=== PATIENT | female | born 1965 | race Two or more races ===

== ENCOUNTER → 2019-02-28 | Outpatient (REF) | payer OTHER ==
[2019-02-28 10:57] LABS: ALBUMIN 4.3 GM/DL (3.2-5.2); ALT/SGPT 15 U/L (12-78); BILIRUBIN,TOTAL 0.4 MG/DL (0.2-1.0); BLOOD UREA NITROGEN 12 MG/DL (7-18); CALCIUM LEVEL 8.8 MG/DL (8.5-10.1); CARBON DIOXIDE LEVEL 27 MEQ/L (21-32); CHLORIDE LEVEL 110 MEQ/L (98-107); CHOLESTEROL LEVEL 133 MG/DL (<200); CHOLESTEROL RISK RATIO 2.714 (<5); CREATININE FOR GFR 0.64 MG/DL (0.55-1.30); GLOMERULAR FILTRATION RATE > 60.0 (>51); GLUCOSE, FASTING 81 MG/DL (70-100); HDL CHOLESTEROL 49 MG/DL (>40); LDL CHOLESTEROL 75 MG/DL (<100); NON-HDL-C 84 MG/DL; POTASSIUM SERUM 3.9 MEQ/L (3.5-5.1); SODIUM LEVEL 144 MEQ/L (136-145); TOTAL PROTEIN 7.8 GM/DL (6.4-8.2); TRIGLYCERIDES LEVEL 45 MG/DL (<150)
== END ==
LOC: M SFHCPLAZ 08:10
PROVIDERS: ATTEND Nurse Practitioner Family
DX: Z00.00 Encounter for general adult medical examination without abnormal findings (principal); Z13.220 Encounter for screening for lipoid disorders

== ENCOUNTER 2021-11-18 11:30 | Emergency (ER) | payer MEDICAID, OTHER ==
[~2021-11-18] VITALS: Ht 157.5 cm; Wt 71.4 kg
[2021-11-18] MEDS ORDERED: ASPI81TA26 PO (11:39)
[2021-11-18 13:11] LABS: HEMATOCRIT 40.5 % (36.0-47.0); HEMOGLOBIN 13.3 g/dl (12.0-15.5); MEAN CORPUSCULAR HEMOGLOBIN 30.1 pg (27.0-33.0); MEAN CORPUSCULAR HGB CONC 32.8 g/dl (32.0-36.5); MEAN CORPUSCULAR VOLUME 91.6 fl (80.0-96.0); PLATELET COUNT, AUTOMATED 236 10^3/uL (150-450); RED BLOOD COUNT 4.42 10^6/uL (4.00-5.40); WHITE BLOOD COUNT 7.1 10^3/uL (4.0-10.0)
[2021-11-18 13:50] LABS: BLOOD UREA NITROGEN 8 MG/DL (7-18); CALCIUM LEVEL 9.6 MG/DL (8.5-10.1); CARBON DIOXIDE LEVEL 29 MEQ/L (21-32); CHLORIDE LEVEL 108 MEQ/L (98-107); CREATININE FOR GFR 0.63 MG/DL (0.55-1.30); GLOMERULAR FILTRATION RATE > 60.0 (>51); GLUCOSE, FASTING 105 MG/DL (70-100); SODIUM LEVEL 141 MEQ/L (136-145)
[2021-11-18 15:35] VITALS: BP 144/71
--- NOTE | 2021-11-18 16:17 | ECGEPIP ---
[facility] - ED Test Date: 2021-11-18 Pat Name: GRETCHEN CLARK Department: Room: - Gender: Female Sales Support Administrator: Rolanda VEGA : 1965 Requested By: Ap Emmanuel Order Number: [id number] Reading MD: Tc Morris Measurements Intervals [place] Rate: 87 P: 55 ID: [id number] QRS: 69 QRSD: 90 T: 46 QT: 376 QTc: 452 Interpretive Statements Normal sinus rhythm Nonspecific ST and T wave abnormality Comparison tracing not on file Electronically Signed on 11-18-2021 16:16:47 EST by Tc Morris
== END 2021-11-18 15:41 | disposition home or self-care (01) ==
LOC: M ED 11:30
DX: R07.89 Other chest pain (principal)

== ENCOUNTER → 2021-12-21 | Outpatient (CLI) | payer MEDICAID ==
[~2021-12-21] MED LIST: ASPI81TA26 PO
[2021-12-21 13:50] LABS: BASO % 0.6 % (0.0-1.0); EOS # 0.3 10^3/uL (0.0-0.5); EOS % 3.9 % (0.0-3.0); HEMATOCRIT 39.6 % (36.0-47.0); LYMPH # 1.7 10^3/uL (1.5-5.0); LYMPH % 26.5 % (24.0-44.0); MEAN CORPUSCULAR HEMOGLOBIN 30.3 pg (27.0-33.0); MEAN CORPUSCULAR HGB CONC 32.8 g/dl (32.0-36.5); MEAN CORPUSCULAR VOLUME 92.3 fl (80.0-96.0); MONO # 0.7 10^3/uL (0.0-0.8); MONO % 10.4 % (2.0-8.0); NEUTROPHILS # 3.7 10^3/uL (1.5-8.5); NEUTROPHILS % 58.4 % (36.0-66.0); PLATELET COUNT, AUTOMATED 232 10^3/uL (150-450); RED BLOOD COUNT 4.29 10^6/uL (4.00-5.40); WHITE BLOOD COUNT 6.3 10^3/uL (4.0-10.0)
[2021-12-21 14:42] LABS: ALT/SGPT 25 U/L (12-78); BILIRUBIN,TOTAL 0.4 MG/DL (0.2-1.0); BLOOD UREA NITROGEN 11 MG/DL (7-18); CALCIUM LEVEL 9.7 MG/DL (8.5-10.1); CARBON DIOXIDE LEVEL 29 MEQ/L (21-32); CHLORIDE LEVEL 108 MEQ/L (98-107); CHOLESTEROL LEVEL 138 MG/DL (<200); CHOLESTEROL RISK RATIO 2.816 (<5); CREATININE FOR GFR 0.62 MG/DL (0.55-1.30); GLOMERULAR FILTRATION RATE > 60.0 (>51); GLUCOSE, FASTING 96 MG/DL (70-100); HDL CHOLESTEROL 49 MG/DL (>40); NON-HDL-C 89 MG/DL; POTASSIUM SERUM 3.9 MEQ/L (3.5-5.1); SODIUM LEVEL 143 MEQ/L (136-145); TRIGLYCERIDES LEVEL 43 MG/DL (<150)
[2021-12-21 14:43] LABS: ALBUMIN 4.6 GM/DL (3.2-5.2); FREE T4 0.96 NG/DL (0.76-1.46); LDL CHOLESTEROL 80 MG/DL (<100); TOTAL 25(OH) VITAMIN D 26.6 NG/ML (30.0-100.0); TOTAL PROTEIN 7.9 GM/DL (6.4-8.2)
[2021-12-21 14:53] LABS: HEMOGLOBIN A1c 5.2 %
== END ==
LOC: M PLALAB 10:24
PROVIDERS: ATTEND Physician Assistant
DX: Z13.1 Encounter for screening for diabetes mellitus (principal); F41.1 Generalized anxiety disorder; Z13.220 Encounter for screening for lipoid disorders

== ENCOUNTER → 2022-04-29 | Outpatient (CLI) | payer MEDICAID ==
[2022-04-29 15:56] LABS: FREE T4 0.81 NG/DL (0.76-1.46); THYROID STIMULATING HORMONE 5.77 uIU/ML (0.358-3.740); TOTAL 25(OH) VITAMIN D 23.9 NG/ML (30.0-100.0)
== END ==
LOC: M PLALAB 12:57
PROVIDERS: ATTEND Physician Assistant
DX: E55.9 Vitamin D deficiency, unspecified (principal); R79.89 Other specified abnormal findings of blood chemistry

== ENCOUNTER → 2022-07-22 | Outpatient (CLI) | payer OTHER | LOC: M RAD 11:29 | PROVIDERS: ATTEND Physician Assistant | DX: R10.31 Right lower quadrant pain (principal) ==

== ENCOUNTER → 2022-08-13 | Outpatient (REF) | payer OTHER ==
[2022-08-13 14:58] LABS: FREE T4 0.97 NG/DL (0.76-1.46); THYROID STIMULATING HORMONE 3.89 uIU/ML (0.358-3.740)
== END ==
LOC: M SFHCADAM 10:47
PROVIDERS: ATTEND Physician Assistant
DX: E03.8 Other specified hypothyroidism (principal)

== ENCOUNTER 2022-09-07 17:37 | Emergency (ER) | payer OTHER ==
[~2022-09-07] VITALS: Ht 162.6 cm; Wt 67.2 kg
[2022-09-07] MEDS ORDERED: KETOROLAC 30 MG/ML 1ML VIAL IV ONE (20:40)
[2022-09-07] MEDS ORDERED: METOCLOPRAMIDE INJ 10MG/2ML VIAL (J2765 PER 1) IV ONE (20:40)
[2022-09-07] MEDS ORDERED: NS 1,000 ML IV ONE (20:40)
[2022-09-07] MEDS ORDERED: diphenhydrAMINE 50MG/ML VIAL (J1200) IV ONE (20:40)
[2022-09-07 21:55] LABS: BLOOD UREA NITROGEN 11 MG/DL (7-18); CALCIUM LEVEL 9.3 MG/DL (8.5-10.1); CARBON DIOXIDE LEVEL 21 MEQ/L (21-32); CHLORIDE LEVEL 110 MEQ/L (98-107); CREATININE FOR GFR 0.66 MG/DL (0.55-1.30); GLOMERULAR FILTRATION RATE > 60.0 (>51); GLUCOSE, FASTING 84 MG/DL (70-100); POTASSIUM SERUM 3.8 MEQ/L (3.5-5.1); SODIUM LEVEL 138 MEQ/L (136-145)
[2022-09-07 22:07] LABS: BASO # 0.1 10^3/uL (0.0-0.2); BASO % 0.7 % (0.0-1.0); EOS # 0.2 10^3/uL (0.0-0.5); EOS % 2.8 % (0.0-3.0); HEMATOCRIT 37.1 % (36.0-47.0); HEMOGLOBIN 12.2 g/dl (12.0-15.5); LYMPH # 2.2 10^3/uL (1.5-5.0); LYMPH % 31.9 % (24.0-44.0); MEAN CORPUSCULAR HEMOGLOBIN 29.8 pg (27.0-33.0); MEAN CORPUSCULAR HGB CONC 32.9 g/dl (32.0-36.5); MEAN CORPUSCULAR VOLUME 90.5 fl (80.0-96.0); MONO # 0.6 10^3/uL (0.0-0.8); MONO % 8.9 % (2.0-8.0); NEUTROPHILS # 3.8 10^3/uL (1.5-8.5); NEUTROPHILS % 55.6 % (36.0-66.0); PLATELET COUNT, AUTOMATED 208 10^3/uL (150-450); WHITE BLOOD COUNT 6.8 10^3/uL (4.0-10.0)
[2022-09-07 22:43] VITALS: BP 158/86
[2022-09-07 22:55] LABS: ERYTHROCYTE SEDIMENTATION RATE 8 mm/hr (0-30)
== END 2022-09-07 22:54 | disposition home or self-care (01) ==
LOC: M ED 17:37
DX: G43.909 Migraine, unspecified, not intractable, without status migrainosus (principal); Z78.0 Asymptomatic menopausal state
CPT/HCPCS: 80048; 85025; 85652; 86140; 96361; 96374; 99284; J1200; J1885; J2765

== ENCOUNTER → 2022-09-13 | Outpatient (CLI) | payer OTHER ==
[~2022-09-13] MED LIST changes: +ISOVUE-370 76% 100ML VIAL As Ordered ONE
== END ==
LOC: M RAD 10:02
PROVIDERS: ATTEND Physician Assistant
DX: R51.9 Headache, unspecified (principal)

== ENCOUNTER → 2022-10-12 | Outpatient (CLI) | payer OTHER ==
[~2022-10-12] MED LIST changes: -ISOVUE-370 76% 100ML VIAL As Ordered ONE; +PROHANCE 279.3MG/ML 15ML VIAL ONE
== END ==
LOC: M PLAIMG 13:54
PROVIDERS: ATTEND Physician Assistant
DX: R51.9 Headache, unspecified (principal)

== ENCOUNTER → 2023-02-11 | Outpatient (REF) | payer OTHER ==
[~2023-02-11] MED LIST changes: -PROHANCE 279.3MG/ML 15ML VIAL ONE
[2023-02-11 13:46] LABS: BASO # 0.1 10^3/uL (0.0-0.2); BASO % 0.7 % (0.0-1.0); EOS # 0.3 10^3/uL (0.0-0.5); EOS % 3.7 % (0.0-3.0); HEMATOCRIT 40.1 % (36.0-47.0); HEMOGLOBIN 13.2 g/dl (12.0-15.5); LYMPH # 2.1 10^3/uL (1.5-5.0); LYMPH % 30.3 % (24.0-44.0); MEAN CORPUSCULAR HEMOGLOBIN 30.8 pg (27.0-33.0); MEAN CORPUSCULAR HGB CONC 32.9 g/dl (32.0-36.5); MEAN CORPUSCULAR VOLUME 93.7 fl (80.0-96.0); MONO # 0.7 10^3/uL (0.0-0.8); MONO % 10.2 % (2.0-8.0); NEUTROPHILS # 3.9 10^3/uL (1.5-8.5); NEUTROPHILS % 54.8 % (36.0-66.0); PLATELET COUNT, AUTOMATED 226 10^3/uL (150-450); RED BLOOD COUNT 4.28 10^6/uL (4.00-5.40); WHITE BLOOD COUNT 7.1 10^3/uL (4.0-10.0)
[2023-02-11 16:24] LABS: ALBUMIN 4.2 G/DL (3.2-5.2); ALKALINE PHOSPHATASE 67 U/L (46-116); ALT/SGPT 23 U/L (7.0-40); AST/SGOT 18 U/L (<34); BILIRUBIN,TOTAL 0.5 MG/DL (0.3-1.2); BLOOD UREA NITROGEN 12 MG/DL (9-23); CARBON DIOXIDE LEVEL 30 MMOL/L (20-31); CHLORIDE LEVEL 106 MMOL/L (98-107); CHOLESTEROL LEVEL 151 MG/DL (<200); CHOLESTEROL RISK RATIO 3.17 (<5); CREATININE FOR GFR 0.57 MG/DL (0.55-1.30); FREE T4 0.84 NG/DL (0.89-1.76); GLOMERULAR FILTRATION RATE > 60.0 (>51); GLUCOSE, FASTING 102 MG/DL (60-100); HDL CHOLESTEROL 47.5 MG/DL (>40); NON-HDL-C 103.5 MG/DL; POTASSIUM SERUM 3.9 MMOL/L (3.5-5.1); SODIUM LEVEL 143 MMOL/L (136-145); THYROID STIMULATING HORMONE 8.346 uIU/ML (0.55-4.78); TOTAL 25(OH) VITAMIN D 32.6 NG/ML (20.0-100.0)
[2023-02-11 18:37] LABS: LDL CHOLESTEROL 91.3 MG/DL (<100); TOTAL PROTEIN 7.4 G/DL (5.7-8.2); TRIGLYCERIDES LEVEL 61 MG/DL (<150)
[2023-02-11 19:05] LABS: HEMOGLOBIN A1c 4.9 % (4.0-6.0)
== END ==
LOC: M SFHCADAM 09:56
PROVIDERS: ATTEND Physician Assistant
DX: F32.1 Major depressive disorder, single episode, moderate (principal); F41.1 Generalized anxiety disorder; E55.9 Vitamin D deficiency, unspecified; E03.8 Other specified hypothyroidism; Z68.27 Body mass index [BMI] 27.0-27.9, adult

== ENCOUNTER → 2023-03-03 | Outpatient (CLI) | payer OTHER ==
[~2023-03-03] MED LIST changes: +GASTROGRAFIN SOLUTION 30ML As Ordered ONE; +ISOVUE-370 76% 100ML VIAL As Ordered ONE
== END ==
LOC: M RAD 11:14
PROVIDERS: ATTEND Physician Assistant
DX: R10.31 Right lower quadrant pain (principal); K76.0 Fatty (change of) liver, not elsewhere classified; K80.20 Calculus of gallbladder without cholecystitis without obstruction; R93.89 Abnormal findings on diagnostic imaging of other specified body structures
CPT/HCPCS: 74177; Q9963; Q9967

== ENCOUNTER → 2023-06-24 | Outpatient (REF) | payer OTHER ==
[~2023-06-24] MED LIST changes: -GASTROGRAFIN SOLUTION 30ML As Ordered ONE; -ISOVUE-370 76% 100ML VIAL As Ordered ONE
[2023-06-24 13:51] LABS: FREE T4 1.08 NG/DL (0.89-1.76); THYROID STIMULATING HORMONE 5.065 uIU/ML (0.55-4.78)
== END ==
LOC: M SFHCADAM 10:53
PROVIDERS: ATTEND Physician Assistant
DX: E03.9 Hypothyroidism, unspecified (principal)

== ENCOUNTER → 2023-07-05 | Outpatient (CLI) | payer OTHER | LOC: M WHC 13:19 | PROVIDERS: ATTEND Physician Assistant | DX: Z12.31 Encounter for screening mammogram for malignant neoplasm of breast (principal); R10.31 Right lower quadrant pain; R14.0 Abdominal distension (gaseous) ==

== ENCOUNTER → 2023-12-05 | Outpatient (CLI) | payer OTHER ==
[2023-12-05 16:05] LABS: THYROID STIMULATING HORMONE 2.894 uIU/ML (0.55-4.78)
[2023-12-05 16:06] LABS: FREE T4 1.02 NG/DL (0.89-1.76); TOTAL 25(OH) VITAMIN D 33.6 NG/ML (20.0-100.0)
== END ==
LOC: M PLALAB 12:15
PROVIDERS: ATTEND Physician Assistant
DX: E03.9 Hypothyroidism, unspecified (principal); K59.09 Other constipation; F41.1 Generalized anxiety disorder; E55.9 Vitamin D deficiency, unspecified

== ENCOUNTER 2024-03-07 06:41 | Day surgery (SDC) | payer OTHER ==
[~2024-03-07] VITALS: Ht 162.6 cm; Wt 74.1 kg
[~2024-03-07 06:41] MED LIST changes: +LEVO25TA5 PO
[2024-03-07] MEDS: CEFUROXIME 1MG/0.1ML INTRACAMERAL INJ As Ordered ONE (06:48)
[2024-03-07] MEDS: LIDOCAINE 3.5 % 1ML OPHTH TOPICAL GEL OU ONE (07:18)
[2024-03-07] MEDS ORDERED: fentaNYL 100 MCG/2 ML INJECTION As Ordered ONE (07:31)
[2024-03-07] MEDS ORDERED: MIDAZOLAM INJ 2MG/2ML VIAL As Ordered ONE (07:31)
[2024-03-07] MEDS: mitoMYcin 0.2 MG/VIAL KIT FOR OPHTHALMIC USE As Ordered ONE (09:55)
[2024-03-07] MEDS: LIDOCAINE 1% SDV 5ML VIAL As Ordered ONE (09:56)
[2024-03-07] MEDS: TOBRADEX OPHTH OINT 3.5 GM As Ordered ONE (09:57)
[2024-03-07 10:08] VITALS: BP 123/71; TEMP 97.4; O2SAT 98
== END 2024-03-07 10:26 | disposition home or self-care (01) ==
LOC: M SDC 06:41
PROVIDERS: ATTEND Ophthalmology
DX: H40.812 Glaucoma with increased episcleral venous pressure, left eye (principal); E03.9 Hypothyroidism, unspecified; Z79.899 Other long term (current) drug therapy
CPT/HCPCS: 66183; C1783; J2250; J3010; J7315

== ENCOUNTER → 2024-03-27 | Outpatient (REF) | payer OTHER | LOC: M SFHCWAGY 14:56 | PROVIDERS: ATTEND Nurse Practitioner Family | DX: Z12.4 Encounter for screening for malignant neoplasm of cervix (principal) ==

== ENCOUNTER → 2024-09-18 | Outpatient (REF) | payer OTHER ==
[2024-09-18 19:20] LABS: HEMOGLOBIN A1c 5.3 % (4.0-6.0)
[2024-09-18 19:27] LABS: BASO % 0.5 % (0.0-1.0); EOS # 0.2 10^3/uL (0.0-0.5); EOS % 2.3 % (0.0-3.0); HEMATOCRIT 43.5 % (36.0-47.0); HEMOGLOBIN 13.8 g/dl (12.0-15.5); LYMPH # 1.8 10^3/uL (1.5-5.0); LYMPH % 28.1 % (24.0-44.0); MEAN CORPUSCULAR HEMOGLOBIN 30.1 pg (27.0-33.0); MEAN CORPUSCULAR HGB CONC 31.7 g/dl (32.0-36.5); MONO # 0.7 10^3/uL (0.0-0.8); MONO % 10.3 % (2.0-8.0); NEUTROPHILS # 3.8 10^3/uL (1.5-8.5); NEUTROPHILS % 58.6 % (36.0-66.0); PLATELET COUNT, AUTOMATED 283 10^3/uL (150-450); RED BLOOD COUNT 4.58 10^6/uL (4.00-5.40); WHITE BLOOD COUNT 6.4 10^3/uL (4.0-10.0)
[2024-09-18 19:44] LABS: CHOLESTEROL RISK RATIO 3.86 (<5); HDL CHOLESTEROL 42.7 MG/DL (>40); LDL CHOLESTEROL 104.7 MG/DL (<100); NON-HDL-C 122.3 MG/DL
[2024-09-18 19:50] LABS: THYROID STIMULATING HORMONE 4.78 uIU/ML (0.55-4.78)
[2024-09-18 19:51] LABS: TOTAL 25(OH) VITAMIN D 31.7 NG/ML (20.0-100.0)
== END ==
LOC: M LAB REF 17:16
PROVIDERS: ATTEND Pediatrics
DX: E66.3 Overweight (principal); Z68.27 Body mass index [BMI] 27.0-27.9, adult; E55.9 Vitamin D deficiency, unspecified

== ENCOUNTER → 2024-10-02 | Outpatient (CLI) | payer OTHER | LOC: M WHC 14:16 | PROVIDERS: ATTEND Pediatrics | DX: Z12.31 Encounter for screening mammogram for malignant neoplasm of breast (principal); Z13.820 Encounter for screening for osteoporosis; Z78.0 Asymptomatic menopausal state; M85.89 Other specified disorders of bone density and structure, multiple sites; R92.313 Mammographic fatty tissue density, bilateral breasts ==

== ENCOUNTER → 2024-11-02 | Outpatient (REF) | payer OTHER ==
[2024-11-02 17:45] LABS: LIPASE 48 U/L (12-53)
[2024-11-02 17:47] LABS: ALBUMIN 4.2 G/DL (3.2-5.2); ALKALINE PHOSPHATASE 79 U/L (35-104); ALT/SGPT 47 U/L (7.0-40); AST/SGOT 13 U/L (<34); BASO # 0.1 10^3/uL (0.0-0.2); BASO % 0.8 % (0.0-1.0); BILIRUBIN,TOTAL 0.6 MG/DL (0.3-1.2); BLOOD UREA NITROGEN 9 MG/DL (9-23); CALCIUM LEVEL 10.4 MG/DL (8.5-10.1); CARBON DIOXIDE LEVEL 30 MMOL/L (20-31); CHLORIDE LEVEL 105 MMOL/L (98-107); CREATININE FOR GFR 0.58 MG/DL (0.55-1.30); EOS # 0.2 10^3/uL (0.0-0.5); EOS % 2.7 % (0.0-3.0); GLOMERULAR FILTRATION RATE > 60.0 (>51); GLUCOSE, FASTING 99 MG/DL (60-100); HEMATOCRIT 43.5 % (36.0-47.0); HEMOGLOBIN 14.2 g/dl (12.0-15.5); LYMPH # 2.3 10^3/uL (1.5-5.0); LYMPH % 35.9 % (24.0-44.0); MEAN CORPUSCULAR HEMOGLOBIN 30.7 pg (27.0-33.0); MEAN CORPUSCULAR HGB CONC 32.6 g/dl (32.0-36.5); MONO # 0.7 10^3/uL (0.0-0.8); MONO % 10.5 % (2.0-8.0); NEUTROPHILS # 3.2 10^3/uL (1.5-8.5); NEUTROPHILS % 49.9 % (36.0-66.0); PLATELET COUNT, AUTOMATED 277 10^3/uL (150-450); POTASSIUM SERUM 4.8 MMOL/L (3.5-5.1); RED BLOOD COUNT 4.63 10^6/uL (4.00-5.40); SODIUM LEVEL 142 MMOL/L (136-145); WHITE BLOOD COUNT 6.4 10^3/uL (4.0-10.0)
== END ==
LOC: M LAB REF 12:14
PROVIDERS: ATTEND Pediatrics
DX: R10.9 Unspecified abdominal pain (principal)

== ENCOUNTER → 2024-11-02 | Outpatient (CLI) | payer OTHER | LOC: M RAD 10:38 | PROVIDERS: ATTEND Pediatrics | DX: R10.9 Unspecified abdominal pain (principal) ==

== ENCOUNTER 2024-12-12 06:19 | Day surgery (SDC) | payer OTHER ==
[~2024-12-12] VITALS: Ht 160 cm; Wt 76.2 kg
[~2024-12-12 06:19] MED LIST changes: +D-50CAP PO
[2024-12-12] MEDS ORDERED: fentaNYL 100 MCG/2 ML INJECTION As Ordered ONE (07:00)
[2024-12-12] MEDS ORDERED: MIDAZOLAM INJ 2MG/2ML VIAL As Ordered ONE (07:00)
[2024-12-12] MEDS: LIDOCAINE 3.5 % 1ML OPHTH TOPICAL GEL OU ONE (07:19)
[2024-12-12] MEDS: LIDOCAINE 1% SDV 5ML VIAL As Ordered ONE (09:38)
[2024-12-12] MEDS: TOBRADEX OPHTH OINT 3.5 GM As Ordered ONE (09:46)
[2024-12-12] MEDS: mitoMYcin 0.2 MG/VIAL KIT FOR OPHTHALMIC USE As Ordered ONE (09:49)
[2024-12-12 09:55] VITALS: BP 167/84; TEMP 97.4; O2SAT 96
== END 2024-12-12 10:48 | disposition home or self-care (01) ==
LOC: M SDC 06:19
PROVIDERS: ATTEND Ophthalmology
DX: H40.1111 Primary open-angle glaucoma, right eye, mild stage (principal); E03.9 Hypothyroidism, unspecified; E66.3 Overweight; Z79.890 Hormone replacement therapy; Z68.29 Body mass index [BMI] 29.0-29.9, adult
CPT/HCPCS: 66183; 93005; C1783; J2250; J3010; J7315

== ENCOUNTER → 2025-01-25 | Outpatient (CLI) | payer OTHER ==
[~2025-01-25] MED LIST changes: +CITA20TA7 PO; +MAGN400T35 PO; +TRAV2.5D OU
== END ==
LOC: M RAD 09:58
PROVIDERS: ATTEND Pediatrics
DX: R10.9 Unspecified abdominal pain (principal); K76.0 Fatty (change of) liver, not elsewhere classified; K80.20 Calculus of gallbladder without cholecystitis without obstruction

== ENCOUNTER → 2025-01-29 | Day surgery (SDC) | payer OTHER ==
[~2025-01-29] VITALS: Ht 162.6 cm; Wt 74.5 kg
[~2025-01-29] MED LIST changes: +LIDOCAINE 2% 100MG/5ML SDV (FOR ANES.) As Ordered ONE; +propofoL 200 MG/20 ML VIAL As Ordered ONE
[2025-01-29 13:25] VITALS: TEMP 97.2
[2025-01-29 13:40] VITALS: BP 131/89; O2SAT 97
== END | disposition home or self-care (01) ==
LOC: M OPP 10:57
PROVIDERS: ATTEND Surgery
DX: Z12.11 Encounter for screening for malignant neoplasm of colon (principal); Z79.899 Other long term (current) drug therapy; K21.9 Gastro-esophageal reflux disease without esophagitis; E03.9 Hypothyroidism, unspecified

== ENCOUNTER 2025-04-18 14:36 | Emergency (ER) | payer OTHER ==
[~2025-04-18] VITALS: Ht 162.6 cm; Wt 77.7 kg
[~2025-04-18 14:36] MED LIST changes: -LIDOCAINE 2% 100MG/5ML SDV (FOR ANES.) As Ordered ONE; -propofoL 200 MG/20 ML VIAL As Ordered ONE
[2025-04-18 15:59] LABS: KETONE, URINE AUTO RFX NEGATIVE (NEGATIVE); LEUKOCYTE ESTERASE UR AUTO RFX NEGATIVE (NEGATIVE); NITRITE, URINE AUTO RFX NEGATIVE (NEGATIVE); RBC, URINE AUTO RFX 1 /HPF (0-3); SQUAM EPITHELIAL CELL UR AURFX 0 /HPF (0-6); WBC, URINE AUTO RFX 1 /HPF (0-3)
[2025-04-18 16:10] LABS: BASO # 0.1 10^3/uL (0.0-0.2); BASO % 0.6 % (0.0-1.0); EOS # 0.2 10^3/uL (0.0-0.5); EOS % 2.6 % (0.0-3.0); HEMATOCRIT 42.6 % (36.0-47.0); LYMPH # 2.2 10^3/uL (1.5-5.0); MEAN CORPUSCULAR HEMOGLOBIN 30.6 pg (27.0-33.0); MEAN CORPUSCULAR HGB CONC 32.9 g/dl (32.0-36.5); MONO # 0.7 10^3/uL (0.0-0.8); MONO % 8.5 % (2.0-8.0); NEUTROPHILS # 5.2 10^3/uL (1.5-8.5); NEUTROPHILS % 62.2 % (36.0-66.0); PLATELET COUNT, AUTOMATED 250 10^3/uL (150-450); RED BLOOD COUNT 4.58 10^6/uL (4.00-5.40); WHITE BLOOD COUNT 8.4 10^3/uL (4.0-10.0)
[2025-04-18 16:27] LABS: LIPASE 47 U/L (12-53)
[2025-04-18 16:29] LABS: ALBUMIN 4.4 G/DL (3.2-5.2); ALKALINE PHOSPHATASE 80 U/L (35-104); ALT/SGPT 24 U/L (7.0-40); AST/SGOT 16 U/L (<34); BILIRUBIN,DIRECT 0.1 MG/DL (<0.4); BILIRUBIN,TOTAL 0.4 MG/DL (0.3-1.2); BLOOD UREA NITROGEN 11 MG/DL (9-23); CALCIUM LEVEL 9.7 MG/DL (8.5-10.1); CARBON DIOXIDE LEVEL 28 MMOL/L (20-31); CHLORIDE LEVEL 105 MMOL/L (98-107); CREATININE FOR GFR 0.56 MG/DL (0.55-1.30); GLOMERULAR FILTRATION RATE > 90.0 (>51); GLUCOSE, FASTING 88 MG/DL (60-100); POTASSIUM SERUM 3.9 MMOL/L (3.5-5.1); SODIUM LEVEL 143 MMOL/L (136-145)
[2025-04-18] MEDS ORDERED: ISOVUE-370 76% 100ML VIAL As Ordered ONE (20:03)
[2025-04-18] MEDS ORDERED: SUCR1TA PO (22:04)
[2025-04-18 22:06] VITALS: BP 149/76; TEMP 98.5; O2SAT 97
== END 2025-04-18 22:12 | disposition home or self-care (01) ==
LOC: M ED 14:36
DX: R10.10 Upper abdominal pain, unspecified (principal); K80.20 Calculus of gallbladder without cholecystitis without obstruction; E07.9 Disorder of thyroid, unspecified; Z79.899 Other long term (current) drug therapy
CPT/HCPCS: 74177; 80048; 80076; 81001; 83690; 85025; 99284; Q9967

== ENCOUNTER → 2025-06-28 | Day surgery (SDC) | payer OTHER ==
[~2025-06-28] VITALS: Ht 162.6 cm; Wt 76.2 kg
[~2025-06-28] MED LIST changes: +HYDROMORPHONE HCL 0.5 MG/0.5 ML SYRINGE IV PRN; +LR 1,000 ML IV SCH; +ONDANSETRON 4MG 2ML VIAL IV PRN; +SUCR1TA PO
[2025-06-28] MEDS: SCOPOLAMINE 1MG TRANSDERMAL PATCH TOP ONE (07:20)
[2025-06-28] MEDS: SCOPOLAMINE 1MG TRANSDERMAL PATCH As Ordered ONE (07:45)
[2025-06-28 10:40] VITALS: BP 109/59; TEMP 97; O2SAT 96
== END | disposition home or self-care (01) ==
LOC: M SDC 06:08
PROVIDERS: ATTEND Surgery
DX: K80.20 Calculus of gallbladder without cholecystitis without obstruction (principal); E03.9 Hypothyroidism, unspecified; Z79.899 Other long term (current) drug therapy
CPT/HCPCS: 47562; 88304; J0665; S2900

== ENCOUNTER → 2025-08-06 | Outpatient (REF) | payer OTHER ==
[~2025-08-06] MED LIST changes: -HYDROMORPHONE HCL 0.5 MG/0.5 ML SYRINGE IV PRN; -LR 1,000 ML IV SCH; -ONDANSETRON 4MG 2ML VIAL IV PRN
== END ==
LOC: M LAB REF 16:29
PROVIDERS: ATTEND Pediatrics
DX: E03.9 Hypothyroidism, unspecified (principal)